=== PATIENT | male | born 1990 | race Caucasian/White ===

== ENCOUNTER 2017-10-12 12:28 | Emergency (ER) | END 2017-10-12 14:11 | disposition home or self-care (01) ==

== ENCOUNTER 2018-04-23 22:32 | Emergency (ER) | END 2018-04-24 00:40 | disposition home or self-care (01) ==

== ENCOUNTER 2018-06-30 10:18 | Emergency (ER) | END 2018-06-30 12:21 | disposition home or self-care (01) ==